=== PATIENT | male | born 1950 | race Caucasian/White ===

== ENCOUNTER 2024-12-23 22:22 | Inpatient (IN) | payer OTHER, SELFPAY ==
[2024-12-23] VITALS (25 sets, daily range): BP systolic 106–181; BP diastolic 72–161; BMI 35.0
[2024-12-23 16:02] LABS: Glucose - Point of Care 76 mg/dl (70-99)
--- NOTE | 2024-12-23 16:26 | CM ---
ED CM consult for dc planning
Pt found home alone, disheveled and confused
Call with neighbor/Elen [phone]
She resides across the street
Pt resides alone in [facility] with 2+1 MANUEL
Pt has a SPC and steadily been declining, pt with poor hygiene
Neighbor does grocery shopping and assists him with paying bills
They called paramedics as pt was weak at home, incontinent and could not get out chair
He does not have an active PCP, not seen one in 7 years
Noted she believes he never had a drain removed post-op but is unsure if drain remains
Pt is to his spouse/Christiana- they are estranged and she is not involved
She resides at [facility]
VM left on her number asking for call back [phone]
CM will continue to follow pt for support and planning
Discharge Disposition- TBD, possible LTC placement
[2024-12-23 16:33] LABS: Hematocrit 45.8 % (39.0-52.0); Hemoglobin 15.4 g/dL (13.0-18.0); Mean Corp Hgb Conc. 33.6 g/dL (33.0-37.0); Mean Corpuscular Volume 85.0 fL (80.0-94.0); Nucleated Red Blood Cells % 0 % (-); Platelet Count 218 10^3/uL (130-400); Red Cell Dist. Width 15.3 % (11.5-14.5)
--- NOTE | 2024-12-23 16:36 | ED.GENMED ---
History of Present Illness
General
Chief Complaint: Change in Mental Status
Source: patient and ambulance crew (Ambulance crew report reviewed)
Exam Limitations: clinical condition and altered mental status
Time Seen by Provider: 12/23/24 15:45
Nursing documentation reviewed up to this point in time: agreed with
History of Present Illness
History of Present Illness:
74-year-old male history of A-fib, tells me has not had meds for at least a year tells me he was on the ground through the weekend since Monday, cannot tell me why he was on the ground only that he could not get up, denies falling denies any pain
triage note states that neighbors found him, patient states that he called the ambulance, nonetheless he is disheveled covered in dried stool looks dehydrated has not eaten for a few days tachycardic
Past History
Past History
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
ED Past Surgical History: Urological (TURP) and Other (Splenectomy)
Social History
Tobacco: Non-smoker
Alcohol: None
Drug: None
Personal: (But lives alone)
Living: with family
Employment: Employed
Family History
Family History: Other (nonsig)
Phy Exam
Physical Exam
Physical Exam:
Physical Exam
General: Disheveled male
Neck: Dry lip
Heart: Tachycardic
Lungs: No wheeze
Abdomen: Obese
Neuro: Oriented to place unsure of the date knows he is in
Skin: no rash
Psychiatric: Disheveled cooperative
Extremities: Scale E stool cover lower extremities
Course
Orders/Labs/Results
Orders:
Orders
12/23/24 15:37
Electrocardiogram (*1) Urgent
Reason for Study: Tachycardia
EKG- Treatment ONCE
12/23/24 15:45
Case Management Consult ONCE
Case Management Consult: Discharge Planning
Requested By:: NURSING
Comment: see ER note.
12/23/24 16:21
Add On- LAB Urgent
Tests Added?: bnp
Add On- LAB Urgent
Tests Added?: cpk
Cardiac Monitoring- Treatment ONCE
12/23/24 16:22
CT Cervical Spine W/o Iv Contr Urgent
Comment:
Reason For Exam: found down
CT Head W/o Iv Contrast Urgent
Comment:
Reason For Exam: found down
12/23/24 16:25
Complete Blood Count/With Diff Urgent
Lactic Acid Urgent
Troponin I Urgent
Urinalysis Reflex To Culture Urgent
Date Specimen was Collected: 12/23/24
Time Specimen was Collected: 15:37
Urine Microscopic Reflex Cult Urgent
Urine Culture Urgent
[place] Source: U
Specimen Description:
Date Specimen was Collected: 12/23/24
Time Specimen was Collected: 15:37
12/23/24 16:38
Diltiazem HCl [Cardizem] 10 mg IV NOW STA
12/23/24 16:41
Straight Cath As Directed
Frequency: One time now
12/23/24 16:45
Diltiazem 125 mg/125 ml Nss [Cardizem] 125 mg in 125 ml IV PER PROTOCOL
Initial dose in mg/hr, then titrate:: 5
Titrate to keep:: Heart rate 80-100 bpm
Titrate by mg/hr:: 5 mg/hr
Frequency of titrations (minutes):: 15
Maximum dose in mg/hr:: 15
12/23/24 16:53
CR Chest Portable - 1 View Urgent
Comment:
Reason For Exam: found down
Reason Study Needs to be Portable: Patient Unstable
12/23/24 16:54
Pelvis, 1 or 2 Views CR [CR Pelvis - 1 Or 2 Views ] Urgent
Comment:
Reason For Exam: portable too sick to transport im told
12/23/24 17:19
NT-proBNP Urgent
12/23/24 18:19
Comprehensive Metabolic Panel Urgent
Creatine Phosphokinase Urgent
Abnormal Lab Results
12/23/24 12/23/24
16:25 18:19
WBC 13.5 H 10^3/uL
(4.8-10.8)
RDW 15.3 H %
(11.5-14.5)
MPV 10.7 H fL
(7.4-10.4)
Abs Immat Gran (auto) 0.1 H 10^3/uL
(0-0.05)
Absolute Neuts (auto) 10.7 H 10^3/uL
(1.4-6.5)
Absolute Lymphs (auto) 1.1 L 10^3/uL
(1.2-3.4)
Absolute Monos (auto) 1.4 H 10^3/uL
(0.1-0.6)
Neutrophils % 79.1 H %
(42.2-75.2)
Lymphocytes % 8.5 L %
(20.5-51.1)
Monocytes % 10.7 H %
(1.7-9.3)
BUN 44 H mg/dl
(9-20)
Lactic Acid 2.3 H mmol/L
(0.7-2.0)
Total Bilirubin 2.4 H mg/dl
(0.2-1.3)
AST 61 H U/L
(17-59)
ALT 51 H U/L
(0-50)
Alkaline Phosphatase 208 H U/L
(38-126)
Troponin I 0.058 H* ng/ml
Albumin 3.4 L g/dl
(3.5-5.0)
Urine Ketones 2+ A
(Negative)
Ur Occult Blood Reflex 2+ A
(Negative)
Leukocyte Esterase Rfl 1+ A
(Negative)
Urine RBC 11-15 A /HPF
(0-2)
Urine Bacteria (Reflex) Few A
(Negative)
Urine Albumin (Reflex) 3+ A
(Neg - Trace)
12/23/24 16:25
12/23/24 18:19
Vital Signs
Initial and Last Documented VS:
Initial Vital Signs
Temp Pulse Resp BP Pulse Ox
98.9 F 173 20 154/112 96
12/23/24 15:36 12/23/24 15:36 12/23/24 15:36 12/23/24 15:36 12/23/24 15:36
Last Documented Vital Signs
Temp Pulse Resp BP Pulse Ox
98.9 F 150 22 136/91 95
12/23/24 15:36 12/23/24 18:15 12/23/24 18:15 12/23/24 18:10 12/23/24 18:00
MDM/Problems Addressed
Differential Diagnosis Includes:
Dehydration rapid A-fib call trauma electrolyte abnormality rhabdo occult infection
MDM/Problems Addressed:
Tachycardia down A-fib noncompliance
Chronic conditions affecting care: Arrhythmia
Acute Exacerbation and/or Progression of Chronic Illness: Arrhythmia
*Radiology
Radiology exam reviewed: radiology read reviewed
*Pulse Oximetry
SaO2: 95
Oxygen Mode of Delivery: Room air
Patient hypoxic: no
*EKG
Interpreted by ED Provider?: Yes
Interpretation: abnormal
Comparison EKG: no comparison EKG present
Heart Rate: 174
Rate: tachycardiac
Rhythm: a-fib
Ischemia: non-specific ST changes
*Legal Arbitrator Interpretation
Rate: tachycardiac
Interpretation: abnormal
Heart Rate: 174
Rhythm: a-fib
*Critical Care Note
Total Time (30-74mins, 75-104mins- exclusive of procedures): 30
ED Attending Note
-
Portions of this chart may have been created with voice recognition software.� Occasional wrong word or��sound alike� substitutions may have occurred due to the inherent limitations of voice recognition software.
Discharge Plan
Departure
Prescriptions:
No Action
hydralazine 50 MG tablet
100 mg PO BID
tamsulosin 0.4 MG capsule
0.8 mg PO HS
trazodone 50 MG tablet
50 mg PO HS
pantoprazole 40 MG tablet,delayed release (DR/EC)
40 mg PO DAILY Qty: 30 0RF
olmesartan 20 MG tablet
20 mg PO DAILY
multivitamin with folic acid [Tab-A-Silver] 1 TABLET tablet
1 tab PO DAILY
apixaban [Eliquis] 5 MG tablet
10 mg PO BID 4 Days Qty: 16 0RF
apixaban [Eliquis] 5 MG tablet
5 mg PO BID Qty: 60 0RF
Rx Instructions:
start 5 mg BID after you complete the 10 mg BID for 4 days
acetaminophen 325 MG tablet
650 mg PO Q4HPRN PRN (Reason: mild to moderate pain) Qty: 0 0RF
atorvastatin 20 MG tablet
20 mg PO QPM Qty: 20 0RF
docusate sodium 100 MG capsule
100 mg PO BID Qty: 0 0RF
Referrals:
NONE,* [Family Provider, Internal Medicine]
Interventions
Interventions:
*Risk Screen - Suicide Last Done: 12/23/24 15:36
*General Assessment Last Done: 12/23/24 15:36
*Neglect/Abuse Screening Last Done: 12/23/24 15:36
*ED- Fall Risk Assessment Last Done: 12/23/24 15:36
*ED COVID-19 Vaccine History Last Done: 12/23/24 15:36
ED- Neurological Assessment Last Done: 12/23/24 15:36
ED Swallowing Screen Last Done: 12/23/24 17:36
Discharge Date and Time
Print Language: GUAMANIAN
[2024-12-23] MEDS: CARDIZEM 10 MG IV (16:48)
[2024-12-23] MEDS: CARDIZEM 125 IV (16:51)
[2024-12-23 17:16] LABS: Troponin I 0.058 ng/ml
[2024-12-23 17:30] LABS: Urine Character Clear (Clear)
[2024-12-23 18:03] LABS: Urine Squamous Cell 0-2 /LPF (Few)
[2024-12-23 19:06] LABS: ALT (SGPT) 51 U/L (0-50); AST (SGOT) 61 U/L (17-59); Albumin 3.4 g/dl (3.5-5.0); Alkaline Phosphatase 208 U/L (38-126); Blood Urea Nitrogen 44 mg/dl (9-20); Calcium 8.8 mg/dl (8.4-10.2); Carbon Dioxide 24 mmol/L (22-30); Chloride 102 mmol/L (98-107); Estimated Creatinine Clearance 78 ml/min; Glucose 80 mg/dl (70-99); Potassium 3.7 mmol/L (3.5-5.1); Sodium 136 mmol/L (135-145); Total Protein 6.5 g/dl (6.3-8.2); eGFR > 60.00
--- NOTE | 2024-12-23 21:42 | HPS.HSE ---
Family Physician
-
Family Physician: * NONE
Chief Complaint
-
atrial fibrillation with rapid ventricular response
History of Present Illness
This is a 74-year-old with past medical history significant for hypertension, CVA, hyperlipidemia, history of PE, presenting to the emergency department after being found down at home.
Patient stated that he has not been on any medications for about a year. He has laid on the ground since the weekend and he is unable to specify why. He states he could not get up. He had denied any falls. He denied any focal weaknesses.
Neighbors found him and taking he called the ambulance. He appears quite dehydrated and tachycardic on arrival.
Patient is fairly poor historian. He said he stopped taking his medications because he felt well and he did not like taking as many medications. He reported that he has not been feeling well since Monday. He had difficulty getting off of the bed.
When he got up to bed he was not able to stand normally and then he lowered himself to the floor. He denies falling. When asked why I could not get him walk he just says that he felt weak but could not provide any more symptoms. Denies having
any fevers or chills. He denies having any cough. He denies any urinary symptoms. He did note some back discomfort. Denies any numbness or tingling. Patient reports no real outside contact except for neighbors and occasional relative (her
brother).
He has not had any thing to drink or eat since Monday evening.
He is quite disheveled in appearance with poor grooming and multiple old skin lesions in his lower extremities.
In the emergency department blood pressure was 106/72 and he was tachycardic to the 130s. He was satting 95% on room air. Temperature was 98.9.
ECG shows atrial fibrillation at a rate of 176 with without any acute ischemic changes. His troponin was 0.06. BNP was 600. CK1 09. UA was unremarkable.
CT of the head shows no acute stroke, no acute intracranial bleed. There is no C-spine trauma. X-ray of the pelvis shows no fracture. Chest x-ray with possible left basilar atelectasis or pneumonia.
Medical History
Past Medical History
Past Medical History: Reports Other
Additional Past Medical History:
Pulmonary embolism
Hypertension
GERD
BPH
History of CVA
Past Surgical History: Reports Cholecystectomy
Social History
Tobacco: Non-smoker
Alcohol: None
Drug: None
Employment: Not Employed
Family History
Family History: Not pertinent
Allergies / Home Medications
Allergies reflects when Allergies were last updated in [facility].
Home Medications with original date entered in [facility]
Allergy/Medication List:
Allergies
Allergy/AdvReac Type Severity Reaction Status Date / Time
No Known Allergies Allergy Verified 05/27/21 12:56
Home Medications
acetaminophen 325 mg tablet 650 mg (2 x 325 mg) PO Q4HPRN PRN mild to moderate pain ##0 06/24/15
atorvastatin 20 mg tablet 20 mg PO QPM ##20 06/24/15
docusate sodium 100 mg capsule 100 mg PO BID ##0 06/24/15
hydralazine 50 mg tablet 100 mg PO BID Blood pressure 01/17/16
tamsulosin 0.4 mg capsule 0.8 mg PO HS Urinary issue 08/12/16
trazodone 50 mg tablet 50 mg PO HS Sleep 06/01/21
pantoprazole 40 mg tablet,delayed release 40 mg PO DAILY #30 tabs 06/04/21
multivitamin with folic acid 400 mcg tablet (Tab-A-Silver) 1 tab PO DAILY Supplement 06/08/21
olmesartan 20 mg tablet 20 mg PO DAILY Blood pressure 06/08/21
apixaban 5 mg tablet (Eliquis) 5 mg PO BID #60 tabs 06/14/21
apixaban 5 mg tablet (Eliquis) 10 mg (2 x 5 mg) PO BID 4 days #16 tabs 06/14/21
Review of Systems
-
History Source: Patient
Constitutional: Reports No Symptoms
EENT: Reports No Symptoms
Respiratory: Reports No Symptoms
Cardiac: Reports No Symptoms
Abdomen/GI: Reports No Symptoms
: Reports No Symptoms
Musculoskeletal: Reports No Symptoms
Skin: Reports No Symptoms
Neurological: Reports No Symptoms
Endocrine: Reports No Symptoms
Hematologic/Lymphatic: Reports No Symptoms
Psych: Reports No Symptoms
Physical Exam
Vital Signs
Vital Signs
Temp Pulse Resp BP Pulse Ox
98.9 F 125 22 106/72 95
12/23/24 15:36 12/23/24 20:40 12/23/24 21:00 12/23/24 20:40 12/23/24 21:00
Physical Exam
General: Well Developed, Appears Chronically Ill and Obese; No No Apparent Distress, Respiratory Distress or Appears in Distress
HEENT: NormoCephalic, Anicteric, Atraumatic, PERRLA and No Ptosis; No Oxygen
Respiratory: Clear
Cardiac: S1/S2, Irregular Rhythm and Tachycardia
Breast: Deferred by me
GI: Soft, Non Tender, Non Distended and Normal Bowel Sounds
Rectal: Deferred by Provider
Genito-urinary: Deferred by me
Musculoskeletal: No Clubbing, No Cyanosis, Edema, Left Lower Extremity (Trace) and Edema, Right Lower Extremity (Trace)
Skin: Warm and Rash
Neuro: AO x 3 and Nonfocal/grossly intact
Hematologic/Lymphatic: No Lymphadenopathy
Psych: Calm
Laboratory Results
-
12/23/24 16:25
12/23/24 18:19
Laboratory Results
Lactic Acid 2.3 mmol/L (0.7-2.0) H 12/23/24 16:25
Total Bilirubin 2.4 mg/dl (0.2-1.3) H 12/23/24 18:19
Total Bilirubin Cancelled 12/23/24 18:19
AST 61 U/L (17-59) H 12/23/24 18:19
AST Cancelled 12/23/24 18:19
ALT 51 U/L (0-50) H 12/23/24 18:19
ALT Cancelled 12/23/24 18:19
Alkaline Phosphatase 208 U/L (38-126) H 12/23/24 18:19
Alkaline Phosphatase Cancelled 12/23/24 18:19
Troponin I 0.058 ng/ml H* 12/23/24 16:25
Data Reviewed
-
Diagnostic Radiology: Image Personally Visualized and interpreted and Report Reviewed by me
CT Scan: Report Reviewed by me
Medical Tests (Nuc Med, Echo, EKG etc): Image Personally Visualized and interpreted
Lab Data: Labs Reviewed by me
Old Records: Reviewed
Impression/Plan
-
IMPRESSION:
74-year-old with history of hypertension, hyperlipidemia, prior PE on apixaban not currently on anticoagulation, hypertension, BPH, presenting to the emergency department after being found on the floor at home and found to be in rapid atrial
fibrillation. He has dehydration with elevated BUN, no obvious signs of infection. He has no focal deficits but has a slight slurring of his speech. CT of the head was negative. Imaging shows no trauma and specifically no hip fracture or
dislocation. Chest x-ray with possible infiltrate but patient is without cough or fevers chills or leukocytosis. UA was unremarkable.
PLAN:
New onset atrial fibrillation with rapid ventricular response
- Admit to IVU
- Continue diltiazem drip
- Patient was not on any beta-salome nor does he have a history of CHF
- CHADS2 equals 2, will need AC, but unclear fall risk, no trauma on imaging
- start heparin for rising trop 0.06 -> 0.2, trend trops.
- NPO after midnight for possible JUMANA/DCCV
- dehydrated but no known h/o CHF. Continue IV fluids for now
- echo, tsh in am
- cardiology consult
PE - h/o PE on record 2021. Does not appear to be provoked at that time and was placed on anticoagulation. Does not know for how long but he has stopped taking medications for 1 month
- No chest pain at this time, check D-dimer
- Check lower extremity DVT
- Reevaluate anticoagulation after for risk evaluation
ACS - Suspect rate related demand ischemia, no cp
- ada 324 x 1
- heparin gtt started
- trend trops
- cardiology consult
Hypertension
- Continue diltiazem
- Hold olmesartan
BPH -renal function is stable no signs of retention
- Restart tamsulosin
- Bladder scan protocol
PT OT
Case management as patient may require rehab placement
DVT prophylaxis�Lovenox subcu
CODE STATUS�full code
[2024-12-23 23:12] LABS: Troponin I 0.291 ng/ml
[2024-12-24] VITALS (14 sets, daily range): BP systolic 110–140; BP diastolic 61–99; BMI 35.0
[2024-12-24] MEDS: CARDIZEM 125 IV ×2 (00:19→08:50)
[2024-12-24] MEDS: HEPARIN 25000 UNITS/250 ML IV (00:31)
[2024-12-24] MEDS: NSS 1000 IV (00:31)
--- NOTE | 2024-12-24 00:45 | PTCARENOTE ---
patient arrived from ED,hand off with ED RN, Wounds documented, VSS. On Cardizem dinfusion at 15, Heparin started @1000 units/hr, Labs sent. Patient is alert andoriented, follws all commands, Right side weakness at baseline. Right hand contracted
and limited movement. +pulses, no edema, Multiple leg wounds venous ulser, cracked skin, sacral wound documented and dressing applied. See worklist for detailed assessment and documentation.
[2024-12-24] MEDS: LOW STRENGTH ASPIRIN 324 MG PO (00:48)
[2024-12-24 00:49] LABS: COVID-19 Antigen Negative (Negative)
[2024-12-24 00:51] LABS: APTT 29.7 Sec (23.4-35.0)
--- NOTE | 2024-12-24 03:00 | DOWNTIME ---
There was a [employer] Electronic Device [employer]airer Downtime on 12/24/2024 from 0100 to 12/24/2024 at 0220. Downtime documentation of patient's care, including medication administrations, has been reconciled in the electronic record per guidelines. Refer to the
patient's paper chart under the miscellaneous tab to see printed paper medication records and downtime forms.
[2024-12-24 05:05] LABS: Hematocrit 42.5 % (39.0-52.0); Hemoglobin 14.1 g/dL (13.0-18.0); Mean Corp Hgb Conc. 33.2 g/dL (33.0-37.0); Mean Corpuscular Volume 85.9 fL (80.0-94.0); Platelet Count 219 10^3/uL (130-400); Red Cell Dist. Width 15.3 % (11.5-14.5)
[2024-12-24 05:30] LABS: Blood Urea Nitrogen 40 mg/dl (9-20); Calcium 8.4 mg/dl (8.4-10.2); Carbon Dioxide 28 mmol/L (22-30); Chloride 103 mmol/L (98-107); Estimated Creatinine Clearance 69 ml/min; Glucose 93 mg/dl (70-99); HDL Cholesterol 21 mg/dl; LDL Cholesterol, Calculated 77 mg/dl; Magnesium 2.0 mg/dl (1.6-2.3); Potassium 3.5 mmol/L (3.5-5.1); Sodium 137 mmol/L (135-145); Very Low Density Lipoprotein 29 mg/dl (0-30); eGFR > 60.00
[2024-12-24 05:32] LABS: Procalcitonin 2.21 ng/ml (0.0-0.25)
[2024-12-24 05:41] LABS: Troponin I 0.471 ng/ml
[2024-12-24 08:08] LABS: APTT 31.8 Sec (23.4-35.0)
--- NOTE | 2024-12-24 08:59 | PTOTSP ---
Received order for PT and reviewed chart. Noted pt with rising troponin level. Will hold PT at this time and await downtrend.
Pt will need OT orders for ADL dysfunction and likely SNF placement.
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
[2024-12-24] MEDS: PROTONIX 40 MG PO (09:52)
[2024-12-24] MEDS: COLACE 100 MG PO ×2 (09:52→20:12)
[2024-12-24] MEDS: TOPROL XL 25 MG PO (11:12)
[2024-12-24] MEDS: CARDIZEM CD 180 MG PO (11:12)
--- NOTE | 2024-12-24 12:23 | W.PN.HOSP.TC ---
Today's Communication/Plan
-
see plan
Assessment / Plan
Assessment / Plan
Impression
74-year-old with history of hypertension, hyperlipidemia, prior PE on apixaban not currently on anticoagulation, hypertension, BPH, presenting to the emergency department after being found on the floor at home and found to be in rapid atrial
fibrillation. He has dehydration with elevated BUN, no obvious signs of infection. He has no focal deficits but has a slight slurring of his speech. CT of the head was negative. Imaging shows no trauma and specifically no hip fracture or
dislocation. Chest x-ray with possible infiltrate but patient is without cough or fevers chills or leukocytosis. UA was unremarkable.
Failure to thrive. Admitted with falls.
Atrial fibrillation with RVR new diagnosis.
Elevated cardiac markers troponin/BNP.
Medication noncompliance
Acute urinary retention
Suspected depression
Other conditions:
History of pulmonary embolism 2021.
History of CVA treated with tPA 2014.
History of gastrointestinal hemorrhage presumably lower source from hemorrhoids and polyps
Essential hypertension.
Obesity with BMI of 35
Dyslipidemia
Plan
Atrial fibrillation with rapid ventricular response, new diagnosis.
Echo 06/09/2021: EF 70 to 75%, normal regional wall motion mild concentric LVH
Asymptomatic and hemodynamically stable upon presentation.
IV Cardizem been transition to metoprolol and diltiazem CD.
Initiated on IV heparin also covering possible ACS given abnormal troponin and pending echocardiogram
Further decision on long-term anticoagulation to be made according to patient wishes and compliance as well as ongoing workup
Abnormal troponin
Mildly elevated pro CHF BNP at 600
Repeated echocardiogram pending.
Consideration of ischemic workup if patient agree.
History pulm embolism 2021
Not compliant with anticoagulation
Lower extremity Doppler
Chest x-ray with questionable left lower lobe infiltrate/atelectasis.
Patient denies any acute respiratory symptoms
Acute urinary retention.
PVR over 500 cc.
Check PSA
Urinalysis with no evidence of infection
Meehan catheter placed on 12/24
Consider Flomax
PT evaluation increase activity
Bilateral venous stasis dermatitis cellulitis.
Afebrile with improving WBC.
No clear indication for antibiotics per
Continue wound care
History of CVA.
No focal findings on exam
CT head
1. No acute intracranial abnormality noted.
2. No acute fracture or subluxation of the cervical spine. Multilevel degenerative changes of the cervical spine.
3. Right frontal convexity partially calcified extra-axial mass, likely meningioma, new from 2016. Recommend outpatient workup with dedicated MRI brain without and with contrast.
Failure to thrive.
Patient at this point declining any invasive test or interventions.
He has been noncompliant with medications including anticoagulation prior to this presentation.
In addition patient declined any aggressive intervention including CPR or invasive ventilation.
Will ask psychiatry to evaluate for capacity and possible depression
DNR
DVT prophylaxis currently on IV heparin.
Anticipated Discharge: 24 - 48 hours
Subjective/Interval History
-
Date of Service: December 24, 2024
Objective Data
-
Labs:
Laboratory Results
12/24/24 12/24/24 12/24/24
00:24 04:18 07:47
WBC 11.4 H
Hgb 14.1
Hct 42.5
Plt Count 219
APTT 29.7 31.8
Sodium 137
Potassium 3.5
Chloride 103
Carbon Dioxide 28
BUN 40 H
Creatinine 1.2
Glucose 93
Calcium 8.4
12/24/24
15:00
WBC
Hgb
Hct
Plt Count
APTT Pending
Sodium
Potassium
Chloride
Carbon Dioxide
BUN
Creatinine
Glucose
Calcium
Vital Signs:
Vital Signs
Temp Pulse Resp BP Pulse Ox
97.6 F 88 19 110/77 96
12/24/24 10:54 12/24/24 12:00 12/24/24 10:54 12/24/24 11:12 12/24/24 10:54
I&O
12/23/24 12/24/24 12/25/24
06:59 06:59 06:59
Intake Total 200 / 200 500 / 500
Balance 200 / 200 500 / 500
Physical Exam
-
General: Well Developed and No Apparent Distress
HEENT: Normocephalic, Atraumatic and Moist Mucous Membranes
Respiratory: Clear to Auscultation
Cardiac: Regular Rhythm and S1/S2; Negative Murmur, Rub or Gallop
GI: Soft, Nontender, Nondistended and Normal Bowel Sounds; Negative Organomegaly
Rectal: Deferred by Provider
Musculoskeletal: No Clubbing, No Cyanosis and Other (Bilateral lower extremity venous stasis dermatitis and superficial wounds.)
Skin: Negative Rash
Neuro: Nonfocal/Grossly Intact
[2024-12-24 12:58] LABS: Troponin I 0.359 ng/ml
[2024-12-24 13:34] LABS: PSA, Total - Screen 2.56 ng/ml (0.0-4.0)
--- NOTE | 2024-12-24 13:34 | WOUNDNOTE ---
R FOOT AND TOE NAILS
--- NOTE | 2024-12-24 13:35 | WOUNDNOTE ---
R LATERAL POSTERIOR LOWER LEG
--- NOTE | 2024-12-24 13:35 | WOUNDNOTE ---
R PROXIMAL LOWER LEG
--- NOTE | 2024-12-24 13:36 | WOUNDNOTE ---
L LATERAL POSTERIOR LOWER LEG
--- NOTE | 2024-12-24 13:36 | WOUNDNOTE ---
L MEDIAL POSTERIOR LOWER LEG
--- NOTE | 2024-12-24 13:37 | WOUNDNOTE ---
SACRUM AND BUTTOCKS
--- NOTE | 2024-12-24 13:38 | WOUNDNOTE ---
R ANTERIOR CAM AFTER CLEANING
--- NOTE | 2024-12-24 13:38 | WOUNDNOTE ---
L FOOT AFTER CLEANING
--- NOTE | 2024-12-24 13:38 | WOUNDNOTE ---
L GREAT TOE NAIL BED
--- NOTE | 2024-12-24 13:40 | WOUNDNOTE ---
[facility] RN note: Patient admitted with atrial fibrillation with RVR.
See H&P for complete history. Lives by self, neighbor assists with shopping etc.
PMH: HTN, obesity, CVA with R sided weakness in arm, HTN, increased weakness.
Wound Location and type/assessment: Patient admitted with: Chronic appearing lymphedema of legs and venous dermatitis. Patient confirmed he is unable to wash legs and feet himself. Nails extremely long, has not been to a picking supervisor. L dorsal foot
with few nails that have fallen off, great toe weeping and 4th toe dry, 5th scabbed. R joy with partial thickness venous ulcer, all others scabbed. + audible pp with Doppler. + hemosiderin staining of legs. Scattered bumpy skin with dried up
weeping suspected. Heels are intact. Patient turned self to R side, R arm weak. Buttock's where folds meet, there are bumpy growths that easily bleed, no open wounds. Suspect patient sits in chair most of day. Family friend and neighbor at bedside
confirms he helps patient when needed.
Appetite: Good.
Pressure redistribution devices in place: On Accumax, asked nurse Chasity to consider adding air overlay or air mattress if patient becomes difficult to turn. Pillow under calves.
Plan: Washed legs and feet with soap and water, moisturized. Will order mineral oil. Local wound care to R joy and L great toe nail bed done. Dandy wraps knee high applied. Foams to heels and sacrum applied. Will confirm orders with hospitalist and
updated nurse. Updated care plan and will follow as needed.
Note to case management of equipment requested for discharge: SNF
Recommend follow up with Podiatry
--- NOTE | 2024-12-24 13:59 | CM ---
Reviewed chart. Met with Mr. Blackwell and his neighbor Rishi. Mr. Blackwell states prior to admission he resides alone in a one story home with one step to enter. He states prior to admission he ambulates with a single point cane or walker. He states he
has a walker or single point cane at home. He does not know if he has a prescription plan since he does not take any medications. We reviewed going to SNF/Rehab. We reviewed the SNF's in the area. He states he would consider [facility]. He has
been there in the past. Will send referrals once therapy evaluations are completed. Medical work-up in progress. The discharge plan is to go to SNF/Rehab. if approved by insurance and bed available.
--- NOTE | 2024-12-24 15:32 | CS.PSYCHR ---
Consult Summary - Psychiatry
-
Pt is a 74-year-old male with hx of hypertension, CVA, hyperlipidemia, history of PE, who presented to the [facility] ED after being found down at home by neighbors. Pt states the chair was too low because pillows had been removed to clean it and he was
unable to get up. Pt reported not being on his prescribed medications for about a year, states some are too expensive, states he felt well so he didn't take them. Pt states he last was his PCP in 2021.
Psychiatry asked to assess for depression and pt's capacity for decision-making. Pt seen sitting upright, leaning over to the left, eating lunch. Right hand/arm has paralysis from a past CVA, pt states he is unable to use it. Pt fairly
cooperative, giving blunt answers, denies any depression. He watches TV for enjoyment. He is aware his medication is important for his health, 'to keep my heart from going crazy', states awareness of risks to his health/life if not taking. Pt
states he asked for palliative care to 'save money.' Pt states he wants to go home. He states he is 'thinking about' the additional tests recommended. Pt appears alert, mostly oriented, in no acute distress, eating his lunch.
Psych Hx: denied
SH: lives alone in ranch-style home; neighbor helps with food shopping and bill paying. Pt is estranged from his . He denies any alcohol or other substance use. 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
Pt denies having any family or support other than his neighbor. Pt states he has a will, but not able to state any medical provisions
MSE: unkempt, disheveled, alert, fairly oriented, cooperative, making eye contact, answering questions. Pt has long dirty fingernails. Pt states his wish to go home, appears to understand health risks of not accepting treatment, does not give a
full rationale. Pt denies depression, denies SI. He shows no signs of psychosis. Insight appears limited to fair.
Imp/Rec: Capacity appears partially intact- pt able to clearly express his wish to go home, seems to understand the basics of his situation, not able to give a complete rationale. He has no reported family to assist with decision-making
Pt denies any depression, not interested in any psychiatric support. Psychiatry will sign off. Please reconsult for any new concerns.
[2024-12-24 16:07] LABS: APTT 32.2 Sec (23.4-35.0)
[2024-12-24] MEDS: LIPITOR 20 MG PO (17:54)
--- NOTE | 2024-12-24 19:32 | PTCARENOTE ---
Discussed plan of care w/ pt. Encouraged turning and moving in bed. Pt verbalized understanding. Will monitor.
[2024-12-24] MEDS: ELIQUIS 5 MG PO (20:12)
[2024-12-24] MEDS: DESENEX/MITRAZOL/ZEASORB 1 APPLIC TOPICAL (20:12)
--- NOTE | 2024-12-24 22:57 | PTCARENOTE ---
assumed care of patient at the change of shift. AAOx3. pleasant. static overlay mattress applied. Afib on tele- appears controlled 70s-80s. bp stable. denies any pain at this time. Heparin stopped per order at approx 1999. PO Eliquis given and
reviewed with patient. denies any cp/palps/sob. turn and repositioned patient. comfort measures provided. Tran in place-orange urine. tran care provided. call pearson within reach.
[2024-12-24] MEDS: FLOMAX 0.8 MG PO (23:45)
[2024-12-25] VITALS (9 sets, daily range): BP systolic 125–161; BP diastolic 76–112; PULSE 85; O2SAT 96
[2024-12-25 05:07] LABS: Hematocrit 42.1 % (39.0-52.0); Hemoglobin 13.9 g/dL (13.0-18.0); Mean Corp Hgb Conc. 33.0 g/dL (33.0-37.0); Mean Corpuscular Volume 87.2 fL (80.0-94.0); Nucleated Red Blood Cells % 0 % (-); Platelet Count 219 10^3/uL (130-400); Red Cell Dist. Width 15.5 % (11.5-14.5)
[2024-12-25 05:40] LABS: Blood Urea Nitrogen 30 mg/dl (9-20); Calcium 8.3 mg/dl (8.4-10.2); Carbon Dioxide 30 mmol/L (22-30); Chloride 104 mmol/L (98-107); Estimated Creatinine Clearance 83 ml/min; Glucose 103 mg/dl (70-99); Potassium 3.6 mmol/L (3.5-5.1); Sodium 136 mmol/L (135-145); eGFR > 60.00
--- NOTE | 2024-12-25 05:57 | PTCARENOTE ---
wound care completed. bed/bath completed. controlled Afib 70s-80s. no complaints at this time.
[2024-12-25 08:40] LABS: Glycohemoglobin (HgbA1c) 5.3 % (4.0-5.6)
[2024-12-25] MEDS: ELIQUIS 5 MG PO ×2 (08:57→20:23)
[2024-12-25] MEDS: TOPROL XL 25 MG PO (08:57)
[2024-12-25] MEDS: PROTONIX 40 MG PO (08:57)
[2024-12-25] MEDS: CARDIZEM CD 180 MG PO (08:57)
[2024-12-25] MEDS: COLACE 100 MG PO ×2 (08:57→20:23)
[2024-12-25] MEDS: HYDROPHOR 1 APPLIC TOPICAL (08:58)
[2024-12-25] MEDS: DESENEX/MITRAZOL/ZEASORB 1 APPLIC TOPICAL ×2 (08:59→20:23)
--- NOTE | 2024-12-25 10:40 | W.PN.CARDCBS ---
Addendum entered and electronically signed by Raúl Cohen MD 12/25/24 12:55:
I saw and examined the patient.
The Registered Nurse First Assistant's note was reviewed and I agree with the note.
Comment: Briefly, 74-year-old man past medical history of CVA and PE who was BIBEMS after being found down at home. On initial presentation ECG showed atrial fibrillation with rapid ventricular response for which cardiology is consulted.
#A-fib
It is patient's preference to minimize medical interventions and therefore will plan for rate control strategy
Heart rate has been well-controlled on oral metoprolol and diltiazem - continue for heart rate goal less than 110 bpm
Eliquis for risk reduction of cardioembolic stroke
#Troponin elevation
Patient with rising troponin peaking at 0.471 but not reporting any chest discomfort and no overt ischemic changes on ECG
Echo w/ NL LV function and no SWMA
Suspect this is due to rapid atrial fibrillation -nonischemic myocardial injury troponin elevation
Given his preference to minimize interventions no plan for ischemic evaluation at this time, but we can revisit this as an outpatient
Stable cardiac status, we will sign off, please recall as needed
Original Note:
Today's Communication / Plan
-
HR controlled with BB and CCB
Cont Eliquis and he may refuse to take as an outpatient
Will schedule cardiology office follow up, but he may not attend
Impression / Plan
-
PCP: None, used to see [facility], last seen 2021
Card: None
Impression:
Admitted with falls, new Afib with RVR and elevated Troponin 12/23/24
Fall and found on the floor at home with unknown down time
Newly diagnosed Afib with RVR of unclear duration
Elevated Troponin
h/o PE in 2021
Not chronically on OAC due to patient choice
h/o CVA treated with tPA in 2014
HTN
Echo 06/09/2021: EF 70 to 75%, normal regional wall motion mild concentric LVH
Echo 12/24/24: EF 70 to 75%, normal regional wall motion, mild concentric LVH, normal RV size and function, no significant valvular pathology
Plan:
-Remains in newly diagnosed atrial fibrillation, but HR has improved following addition of Cardizem CD 180 mg daily and Toprol-XL 25 mg daily on 12/24/2024. Patient remains asymptomatic with A-fib
-Patient is not a candidate for rhythm control due to noncompliance
-Patient stopped taking Eliquis in 2021 due to cost. We talked about trying to use affordable medication where possible. Patient is willing to restart Eliquis for now, but says he will not take medications he can't afford once at home.
-Started Eliquis 5 mg BID (age 74, Cre 1.2)
-Stop Heparin gtt tonight after 1st dose of Eliquis, all orders placed by me
-EF preserved by echo and no evidence of acute HF
-Troponin peaked at 0.471. Patient denies any chest pain, ECG without acute ischemic change. No WMA. Troponin elevation could be related to A-fib with RVR.
-Patient was not taking any medications prior to admission. Patient presented disheveled and paramedics report a home in disarray and in need of maintenance. Patient says that he is willing to go to rehab prior to returning home. Patient vocalizes
an interest in palliative or even hospice level of care as in general he would not want any aggressive care and overall would like to avoid hospitalization, regular outpatient care and medical therapy.
-Will schedule an outpatient cardiology visit and patient may choose not to attend
HPI: Patient came to [facility] ER yesterday after being found on the floor in his home and was admitted with new Afib with RVR and elevated Troponin, cardiology is consulted. Patient lives alone, but has a friend/POA named Ervin stays with him sometimes
on the weekends. Ervin is POA and apparently has some access to patient's financial resources, but patient does not know exactly. Patient says he relies on friends and neighbors to help him pay bills and get groceries. Patient is disheveled, his
fingernails and toenails are up to 1 inch in length and patient with dried feces on himself on admission. Paramedics reported patient patient's home was in disarray and in need of maintenance. Patient says he was struggling to remove a piece of hard
stool from his rectum and called Ervin for help, but Ervin refused to come and help and so patient tried to remove it himself and he says he fell and laid on the floor for hours yesterday morning until neighbors found him. Patient was in Afib with
RVR in the ER, but denies palpitations. Patient used to be on Eliquis for PE in 2021, but stopped taking meds due to cost. Initial Troponin was 0.058 and up to 0.471 this morning, but patient denies chest pain. Patient is sedentary at home. No
previous stress test.
Progress Note - Visual Artist
Subjective
Date of Service: December 25, 2024
He says he feels better
Objective
Labs:
12/25/24 04:52
12/25/24 04:52
Labs
Hgb 13.9 g/dL (13.0-18.0) 12/25/24 04:52
Hct 42.1 % (39.0-52.0) 12/25/24 04:52
Plt Count 219 10^3/uL (130-400) 12/25/24 04:52
APTT Cancelled 12/24/24 22:00
Sodium 136 mmol/L (135-145) 12/25/24 04:52
Potassium 3.6 mmol/L (3.5-5.1) 12/25/24 04:52
BUN 30 mg/dl (9-20) H 12/25/24 04:52
Creatinine 1.0 mg/dL (0.7-1.3) 12/25/24 04:52
Glucose 103 mg/dl (70-99) H 12/25/24 04:52
Troponins
12/23/24 12/23/24 12/24/24
16:25 22:34 04:18
Troponin I 0.058 H* 0.291 H* D 0.471 H* D
12/24/24
12:11
Troponin I 0.359 H*
Vital Signs and I&O:
Vital Signs
Temp Pulse Resp BP Pulse Ox
97.6 F 84 20 131/76 96
12/25/24 07:50 12/25/24 09:00 12/25/24 07:50 12/25/24 08:57 12/25/24 07:50
Vital Signs
Temp Pulse Resp BP Pulse Ox
97.6 F 84 20 131/76 96
12/25/24 07:50 12/25/24 09:00 12/25/24 07:50 12/25/24 08:57 12/25/24 07:50
Intake & Output
12/23/24 12/24/24 12/25/24 12/26/24
06:59 06:59 06:59 06:59
Intake Total 200 / 200 1819 / 1819
Output Total 1550 / 1550
Balance 200 / 200 269 / 269
Physical Exam
Physical Exam
GEN: NAD. AAOx3.
LUNGS: RA. Not wheeze
CV: Afib on tele.
EXT: +1 B/L LE edema. B/L LE wounds and excoriations. Inch long toenails with visible brown to black dirt under all nails
NEURO: Gross non-focal
SKIN: No rash.
--- NOTE | 2024-12-25 11:23 | PTCARENOTE ---
Encouraged pt to change his position frequently while in bed.
--- NOTE | 2024-12-25 12:05 | W.PN.HOSP.TC ---
Today's Communication/Plan
-
Rate controlled on oral regimen
Reinstated on thromboembolic prophylaxis with Eliquis
Lower extremity Doppler pending.
No clinical indication for ischemic workup over this hospitalization.
PT/OT assessment
Placement to long-term facility
Assessment / Plan
Assessment / Plan
Impression
74-year-old with history of hypertension, hyperlipidemia, prior PE on apixaban not currently on anticoagulation, hypertension, BPH, presenting to the emergency department after being found on the floor at home and found to be in rapid atrial
fibrillation. He has dehydration with elevated BUN, no obvious signs of infection. He has no focal deficits but has a slight slurring of his speech. CT of the head was negative. Imaging shows no trauma and specifically no hip fracture or
dislocation. Chest x-ray with possible infiltrate but patient is without cough or fevers chills or leukocytosis. UA was unremarkable.
Failure to thrive. Admitted with falls.
Atrial fibrillation with RVR new diagnosis.
Elevated cardiac markers troponin/BNP.
Medication noncompliance
Acute urinary retention
Suspected depression
Other conditions:
History of pulmonary embolism 2021.
History of CVA treated with tPA 2014.
History of gastrointestinal hemorrhage presumably lower source from hemorrhoids and polyps
Essential hypertension.
Obesity with BMI of 35
Dyslipidemia
Plan
Atrial fibrillation with rapid ventricular response, new diagnosis.
Echo 06/09/2021: EF 70 to 75%, normal regional wall motion mild concentric LVH
Asymptomatic and hemodynamically stable upon presentation.
Rate controlled
Transitioned off IV Cardizem to oral Cardizem and metoprolol
Reinstated on anticoagulation with Eliquis
Abnormal troponin
Mildly elevated pro CHF BNP at 600
Echocardiogram with preserved biventricular function with no regional wall motion abnormalities.
Currently no indication for ischemic workup.
Will need outpatient follow-up
History pulm embolism 2021
Not compliant with anticoagulation
Lower extremity Doppler pending
Chest x-ray with questionable left lower lobe infiltrate/atelectasis.
Patient denies any acute respiratory symptoms
Acute urinary retention.
PVR over 500 cc.
Check PSA
Urinalysis with no evidence of infection
Meehan catheter placed on 12/24
Consider Flomax
PT evaluation increase activity
Bilateral venous stasis dermatitis cellulitis.
Afebrile with improving WBC.
No clear indication for antibiotics per
Continue wound care
History of CVA.
No focal findings on exam
CT head
1. No acute intracranial abnormality noted.
2. No acute fracture or subluxation of the cervical spine. Multilevel degenerative changes of the cervical spine.
3. Right frontal convexity partially calcified extra-axial mass, likely meningioma, new from 2016. Recommend outpatient workup with dedicated MRI brain without and with contrast.
Failure to thrive.
Patient at this point declining any invasive test or interventions.
He has been noncompliant with medications including anticoagulation prior to this presentation.
In addition patient declined any aggressive intervention including CPR or invasive ventilation.
Will ask psychiatry to evaluate for capacity and possible depression
DNR
DVT prophylaxis currently on IV heparin.
Anticipated Discharge: Within 24 hours
Subjective/Interval History
-
Date of Service: December 25, 2024
Objective Data
-
Labs:
Laboratory Results
12/25/24
04:52
WBC 10.3
Hgb 13.9
Hct 42.1
Plt Count 219
Sodium 136
Potassium 3.6
Chloride 104
Carbon Dioxide 30
BUN 30 H
Creatinine 1.0
Glucose 103 H
Calcium 8.3 L
Vital Signs:
Vital Signs
Temp Pulse Resp BP Pulse Ox
98.5 F 84 20 131/76 96
12/25/24 11:46 12/25/24 09:00 12/25/24 11:46 12/25/24 08:57 12/25/24 11:46
I&O
12/24/24 12/25/24 12/26/24
06:59 06:59 06:59
Intake Total 200 / 200 1819 / 1819
Output Total 1550 / 1550
Balance 200 / 200 269 / 269
Physical Exam
-
General: Well Developed and No Apparent Distress
HEENT: Normocephalic, Atraumatic and Moist Mucous Membranes
Respiratory: Clear to Auscultation
Cardiac: Regular Rhythm and S1/S2; Negative Murmur, Rub or Gallop
GI: Soft, Nontender, Nondistended and Normal Bowel Sounds; Negative Organomegaly
Rectal: Deferred by Provider
Musculoskeletal: No Clubbing, No Cyanosis and Other (Bilateral lower extremity venous stasis dermatitis and superficial wounds.)
Skin: Negative Rash
Neuro: Nonfocal/Grossly Intact
--- NOTE | 2024-12-25 14:53 | CM ---
Reviewed chart. Met with Mr. Blackwell to review discharge plans. We reviewed the medical team recommendation of SNF/Rehab. We reviewed the SNF optuion list. He was agreeable to having referrals made to [facility] and [facility]. Will
make the referrals to SNF's after theapy has seen him to check on available bed. Will need pre-cert with his insurance for SNF/Rehab. Medical work-up in progress. The discharge plan is to go to SNF rehab when bed available and approved by
insurance when medically stable.
[2024-12-25] MEDS: LIPITOR 20 MG PO (18:08)
[2024-12-25] MEDS: FLOMAX 0.8 MG PO (20:25)
--- NOTE | 2024-12-25 23:06 | PTCARENOTE ---
Pt. oriented and pleasant, VSS, A-fib rate 90's-120's on the monitor. OOB for meals today per report then in bed tonight, q 2 turns maintained. Meehan catheter intact draining armando/orange urine. Pt. refusing to have B/L leg wraps removed at this
time, states he's more comfortable with them on. Resting quietly.
[2024-12-26] VITALS (23 sets, daily range): BP systolic 85–189; BP diastolic 65–157; BMI 36.4
[2024-12-26] MEDS: CARDIZEM 10 MG IV (01:59)
[2024-12-26] MEDS: LASIX 40 MG IV (02:00)
--- NOTE | 2024-12-26 02:15 | PTCARENOTE ---
Pt.'s HR shot up to 140's-170's (A-fib) at 0133. When checked on pt. found to be tachypneic and wheezing audibly, stated he was short of breath, denied any other pain or discomfort. . Pulse ox on RA 95% - 2L O2 placed for comfort; BP 173/96, temp
98.4. Hospitalist JUAN M Espinoza notified, orders for Cardizem 10 mg IV x 1, Lasix 40 mg IV, pro-BNP & portable CXRY obtained. Meds given, testing completed. Pt. visibly less distressed post med administration, stated he felt much relief, HR down to
low 100's-110's. Urine in Meehan tubing light yellow (had been dark armando previously) and draininjg well. JUAN M Buchanan in to assess at bedside, no new orders.
[2024-12-26 02:43] LABS: Blood Urea Nitrogen 23 mg/dl (9-20); Calcium 8.5 mg/dl (8.4-10.2); Carbon Dioxide 29 mmol/L (22-30); Chloride 103 mmol/L (98-107); Estimated Creatinine Clearance 83 ml/min; Glucose 152 mg/dl (70-99); Potassium 4.1 mmol/L (3.5-5.1); Sodium 136 mmol/L (135-145); eGFR > 60.00
[2024-12-26] MEDS: LOPRESSOR 5 MG IV (03:28)
[2024-12-26] MEDS: OFIRMEV 100 IV (03:34)
[2024-12-26 04:05] LABS: Hematocrit 43.6 % (39.0-52.0); Hemoglobin 14.6 g/dL (13.0-18.0); Mean Corp Hgb Conc. 33.5 g/dL (33.0-37.0); Mean Corpuscular Volume 86.3 fL (80.0-94.0); Platelet Count 260 10^3/uL (130-400); Red Cell Dist. Width 15.9 % (11.5-14.5)
[2024-12-26 04:09] LABS: ALT (SGPT) 170 U/L (0-50); AST (SGOT) 344 U/L (17-59); Albumin 3.0 g/dl (3.5-5.0); Alkaline Phosphatase 421 U/L (38-126); Total Protein 5.9 g/dl (6.3-8.2)
[2024-12-26 04:29] LABS: Urine Character Clear (Clear)
[2024-12-26 04:45] LABS: Urine Red Blood Cell 16-20 /HPF (0-2); Urine Squamous Cell 0-2 /LPF (Few)
--- NOTE | 2024-12-26 04:55 | PTCARENOTE ---
At 0306 Pt's HR again increased - up to the 190's (A-fib). When checked on pt. appeared to be having rigors with uncontrollable shaking, warm to touch & tachypnea. BP 145/107; rectal temperature of 101.7, pulse ox on 2L 95%. Hospitalist JUAN M
Chanel notified and came to bedside, orders for labs entered (CBC, lactic acid, blood & urine cultures) and sent, Lopressor 5 mg IV x 1, and Ofirmev 1g given. Pt. visibly much more comfortable post doctor of veterinary medicine, HR low 100's-120's. BP 119/72, oral
temp 98.9. Pt. to be started on IV antibiotics per orders. Currently resting quietly, HR 113.
[2024-12-26] MEDS: STERILE WATER FOR INJECTION 10 ML IV ×3 (05:22→17:53)
[2024-12-26] MEDS: MAXIPIME 1000 MG IV ×3 (05:22→17:52)
--- NOTE | 2024-12-26 05:28 | W.PN.UPDATE ---
Update Note
Progress Note Update
~ 0145 pt with increased RR and SOB- HR increased from 80s-120s a fib to 120s-170s. X1 dose of 10mg Cardizem given as well as 40mg IV Lasix and CXR-Dr. Borja- looked at image and interpreted no acute disease- awaiting radiologist interpretation.
~ around 0315- RN reached out stating pts HR was increasing again into the 170s afib and was SOB with Rigors- Temp 101.7 rectal. Orders placed for Lactic, CBC, UA, add on LFTs, Offirmiv, and Lopressor 5mg IV. Discussed results Lactic acid- 3.2,
Total bili-5.5, direct bili- 4.3 AST- 344 ALT-170 Alk phos- [address] Borja�and he recommended adding, covid swab, CT ABD/PEL., Vanco x1, Cefepime and Flagyl. Pt diuresising well s/p Lasix.�
[2024-12-26] MEDS: VANCOCIN 540 MG IV (05:29)
[2024-12-26 05:55] LABS: COVID-19 Antigen Negative (Negative)
[2024-12-26] MEDS: PROTONIX 40 MG PO (08:40)
[2024-12-26] MEDS: FLAGYL 500 MG 100 IV ×2 (08:40→17:53)
[2024-12-26] MEDS: CARDIZEM CD 180 MG PO (08:40)
[2024-12-26] MEDS: COLACE 100 MG PO ×2 (08:41→21:03)
[2024-12-26] MEDS: HYDROPHOR 1 APPLIC TOPICAL (08:41)
[2024-12-26] MEDS: DESENEX/MITRAZOL/ZEASORB 1 APPLIC TOPICAL ×2 (08:41→21:04)
[2024-12-26] MEDS: ELIQUIS 5 MG PO (08:41)
--- NOTE | 2024-12-26 08:52 | PTCARENOTE ---
Assumed care at 0700. Patient AO x3, withdrawn, garbled speech, RUE flaccid from a prior CVA. A-fib HR 110, BP 101/68, POX 94% on 2 liters NC. Lungs CTA, denies shortness of breath appears comfortable. Lower extremities + 1 edema, Doppler pedal
pulses, wound care completed, skin brown flaky skin with skin tears, toe nails unkempt, right great toenail absent, pink wound bed, REX. Sacral foam in place. Meehan cloudy orange urine. Abdomen large non-tender, can't recall last BM. IV antibiotics
infusing, NPO for CT of Abdomen with PO contrast. Call pearson placed in reach
[2024-12-26] MEDS: OMNIPAQUE 50 ML PO (09:06)
--- NOTE | 2024-12-26 10:08 | PTCARENOTE ---
oral contrast finished
[2024-12-26] MEDS: TOPROL XL PO (11:16)
--- NOTE | 2024-12-26 12:08 | PTCARENOTE ---
Page sent to IV for another IV access. Lactic acid collected, best attempt. Patient AO x 2-3, forgetful to time, oriented to situation. BP 103/79, POX 95% on 2 liters NC, A-fib HR 103, NPO to CT of abdomen, urine remains orange and cloudy
--- NOTE | 2024-12-26 13:28 | CM ---
Reviewed chart. Telephone call to [facility] and [facility] to make the referral. Sent referral to [facility] and [facility]. [facility] admissions is asking for an application because of the possibility of
needing rental car deliverer. [facility] will send the application. Await answer from [facility]. Medical work-up in progress. The discharge plan is to go to SNF/Rehab. when bed available and approved by insurance when medically stable.
--- NOTE | 2024-12-26 14:20 | W.PN.HOSP.TC ---
Today's Communication/Plan
-
SIRS. On 12/26 developed fever, transient hypotension, lactic acidosis, noted with mild elevation of white count at 12.1 and abnormal LFTs mixed pattern
Patient offers no specific complaints suggesting of a source of possible infection.
Chest x-ray with bilateral interstitial edema, although with stable respiratory status. Status post single dose of Lasix provided on 12/26.
Repeat UA and reflex to culture.
Maintain Meehan
CT of the abdomen pelvis with IV and oral contrast
Broad-spectrum antibiotics pending cultures: Status post vancomycin, continue cefepime and metronidazole
Trend lactic acid
While hemodynamically stable hold further IV fluids
Assessment / Plan
Assessment / Plan
Impression
74-year-old with history of hypertension, hyperlipidemia, prior PE on apixaban not currently on anticoagulation, hypertension, BPH, presenting to the emergency department after being found on the floor at home and found to be in rapid atrial
fibrillation. He has dehydration with elevated BUN, no obvious signs of infection. He has no focal deficits but has a slight slurring of his speech. CT of the head was negative. Imaging shows no trauma and specifically no hip fracture or
dislocation. Chest x-ray with possible infiltrate but patient is without cough or fevers chills or leukocytosis. UA was unremarkable.
Failure to thrive. Admitted with falls.
Atrial fibrillation with RVR new diagnosis.
Elevated cardiac markers troponin/BNP.
Medication noncompliance
Acute urinary retention
SIRS with fever, hypotension, lactic acidosis on 12/26
Abnormal LFTs mixed pattern with hyperbilirubinemia and elevated transaminases
Suspected depression
Other conditions:
History of pulmonary embolism 2021.
History of CVA treated with tPA 2014.
History of gastrointestinal hemorrhage presumably lower source from hemorrhoids and polyps
Essential hypertension.
Obesity with BMI of 35
Dyslipidemia
Plan
Atrial fibrillation with rapid ventricular response, new diagnosis.
Echo 06/09/2021: EF 70 to 75%, normal regional wall motion mild concentric LVH
Asymptomatic and hemodynamically stable upon presentation.
Rate controlled
Transitioned off IV Cardizem to oral Cardizem and metoprolol
Reinstated on anticoagulation with Eliquis
Abnormal troponin
Mildly elevated pro CHF BNP at 600
Echocardiogram with preserved biventricular function with no regional wall motion abnormalities.
Currently no indication for ischemic workup.
Will need outpatient follow-up
SIRS. On 12/26 developed fever, transient hypotension, lactic acidosis, noted with mild elevation of white count at 12.1 and abnormal LFTs mixed pattern
Patient offers no specific complaints suggesting of a source of possible infection.
Chest x-ray with bilateral interstitial edema, although with stable respiratory status. Status post single dose of Lasix provided on 12/26.
Repeat UA and reflex to culture.
Maintain Meehan
CT of the abdomen pelvis with IV and oral contrast
Broad-spectrum antibiotics pending cultures: Status post vancomycin, continue cefepime and metronidazole
Trend lactic acid
While hemodynamically stable hold further IV fluids
History pulm embolism 2021
Not compliant with anticoagulation
Lower extremity Doppler pending
Chest x-ray with questionable left lower lobe infiltrate/atelectasis.
Patient denies any acute respiratory symptoms
Acute urinary retention.
PVR over 500 cc.
Check PSA
Urinalysis with no evidence of infection
Meehan catheter placed on 12/24
Consider Flomax
PT evaluation increase activity
Bilateral venous stasis dermatitis cellulitis.
Afebrile with improving WBC.
No clear indication for antibiotics per
Continue wound care
History of CVA.
No focal findings on exam
CT head
1. No acute intracranial abnormality noted.
2. No acute fracture or subluxation of the cervical spine. Multilevel degenerative changes of the cervical spine.
3. Right frontal convexity partially calcified extra-axial mass, likely meningioma, new from 2016. Recommend outpatient workup with dedicated MRI brain without and with contrast.
Failure to thrive.
Patient at this point declining any invasive test or interventions.
He has been noncompliant with medications including anticoagulation prior to this presentation.
In addition patient declined any aggressive intervention including CPR or invasive ventilation.
Will ask psychiatry to evaluate for capacity and possible depression
DNR
DVT prophylaxis currently on IV heparin.
Anticipated Discharge: > 48 hours
Subjective/Interval History
-
Date of Service: December 26, 2024
Objective Data
-
Labs:
Laboratory Results
12/26/24 12/26/24
02:06 03:38
WBC 12.1 H
Hgb 14.6
Hct 43.6
Plt Count 260
Sodium 136
Potassium 4.1
Chloride 103
Carbon Dioxide 29
BUN 23 H
Creatinine 1.0
Glucose 152 H
Calcium 8.5
Total Bilirubin 5.5 H D
AST 344 H
ALT 170 H
Alkaline Phosphatase 421 H
Vital Signs:
Vital Signs
Temp Pulse Resp BP Pulse Ox
98.3 F 109 20 101/68 99
12/26/24 11:47 12/26/24 08:40 12/26/24 11:47 12/26/24 08:40 12/26/24 11:47
I&O
12/25/24 12/26/24 12/27/24
06:59 06:59 06:59
Intake Total 1819 / 1819 1120 / 1120 1060 / 1060
Output Total 1550 / 1550 1200 / 1200
Balance 269 / 269 -80 / -80 1060 / 1060
Physical Exam
-
General: Well Developed and No Apparent Distress
HEENT: Normocephalic, Atraumatic and Moist Mucous Membranes
Respiratory: Clear to Auscultation
Cardiac: Regular Rhythm and S1/S2; Negative Murmur, Rub or Gallop
GI: Soft, Nontender, Nondistended and Normal Bowel Sounds; Negative Organomegaly
Rectal: Deferred by Provider
Musculoskeletal: No Clubbing, No Cyanosis and Other (Bilateral lower extremity venous stasis dermatitis and superficial wounds.)
Skin: Negative Rash
Neuro: Nonfocal/Grossly Intact
--- NOTE | 2024-12-26 15:10 | PTCARENOTE ---
Patient returned from CT scan. Left upper arm midline placed by IV team. Lunch ordered call pearson in reach
--- NOTE | 2024-12-26 15:52 | W.PN.UPDATE ---
Update Note
Progress Note Update
CT scan:
1. Mild intrahepatic biliary ductal dilation, new/increased compared to prior CT dated 06/08/2021. Given history of sepsis, cholangitis is not excluded.
2. There is a chronic indwelling plastic stent within the common bile duct, also seen on prior CT from 2021. Given new biliary ductal dilation, this stent may be at least partially blocked.
3. Several ill-defined hypoattenuating lesions within the liver, measuring up to 1.8 cm in diameter, new compared to prior CT. Differential diagnosis includes intrahepatic bilomas, hepatic neoplasm, and metastatic disease to the liver.
4. Findings of mild constipation.
With additional questioning patient is aware of biliary stent, although could not recall timing and circumstances.
Will ask gastroenterology to see. Will require intervention sooner later
Continue antibiotics
Follow LFT trend.
Will require further workup for hypoattenuating lesions throughout the liver, although patient expressed desire not to pursue any invasive tests and procedures.
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
[2024-12-26] MEDS: LIPITOR 20 MG PO (17:53)
[2024-12-26] MEDS: FLOMAX 0.8 MG PO (21:03)
[2024-12-27] MEDS: MAXIPIME 1000 MG IV ×4 (00:15→17:21)
[2024-12-27] MEDS: STERILE WATER FOR INJECTION 10 ML IV ×4 (00:15→17:21)
[2024-12-27 03:48] VITALS: BP 117/71
[2024-12-27 04:33] LABS: Hematocrit 39.4 % (39.0-52.0); Hemoglobin 13.0 g/dL (13.0-18.0); Mean Corp Hgb Conc. 33.0 g/dL (33.0-37.0); Mean Corpuscular Volume 86.8 fL (80.0-94.0); Nucleated Red Blood Cells % 0 % (-); Platelet Count 239 10^3/uL (130-400); Red Cell Dist. Width 16.6 % (11.5-14.5)
[2024-12-27 04:47] LABS: ALT (SGPT) 183 U/L (0-50); AST (SGOT) 262 U/L (17-59); Albumin 2.4 g/dl (3.5-5.0); Alkaline Phosphatase 300 U/L (38-126); Blood Urea Nitrogen 27 mg/dl (9-20); Calcium 8.0 mg/dl (8.4-10.2); Carbon Dioxide 30 mmol/L (22-30); Chloride 101 mmol/L (98-107); Estimated Creatinine Clearance 77 ml/min; Glucose 128 mg/dl (70-99); Potassium 4.0 mmol/L (3.5-5.1); Sodium 135 mmol/L (135-145); Total Protein 5.2 g/dl (6.3-8.2); eGFR > 60.00
[2024-12-27] MEDS: FLAGYL 500 MG 100 IV ×2 (06:12→17:21)
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
[2024-12-27 07:47] VITALS: BP 110/68
[2024-12-27] MEDS: HYDROPHOR 1 APPLIC TOPICAL (08:03)
[2024-12-27] MEDS: COLACE 100 MG PO ×2 (08:03→19:33)
[2024-12-27] MEDS: PROTONIX 40 MG PO (08:03)
[2024-12-27] MEDS: TOPROL XL 25 MG PO (08:03)
[2024-12-27] MEDS: CARDIZEM CD 180 MG PO (08:03)
[2024-12-27] MEDS: DESENEX/MITRAZOL/ZEASORB 1 APPLIC TOPICAL ×2 (08:04→19:33)
--- NOTE | 2024-12-27 08:47 | W.PN.UPDATE ---
Update Note
Progress Note Update
I spoke with [facility] and Spoke with Dr. Ambrocio and Dr. Hector to be accepted to [facility] for cholangitis. Reviewed labs, vital, imaging and status. Face sheet faxed. reviewed with Dr. Daniels and cardiology. Pt consents to
transfer . Rishi updated.
pt estranged from
contacts are Rishi Borjas- [phone] and Federico Nunn [phone](federico in operator and truck driver and cannot always be reached)
--- NOTE | 2024-12-27 09:18 | PTCARENOTE ---
Patient AO x 2-3, confused to time, RUE flaccid, A-fib BBB HR 90's, +1 edema. LUE midline. Meehan discontinued at 0815, #25 condom cath placed. Urine orange. Skin in legs brown and scaly. skin tears b/l legs, left forearm and stage II sacral ulcer
covered with a foam dressing. Heel foams intact. Patient NPO except meds. Call pearson in reach
--- NOTE | 2024-12-27 09:45 | CM ---
Reviewed chart. Mr Blackwell accept in transfer to [facility] for continued care. Await confirmation of bed availability. Will need to go via ambulance. Medical work-up in progress. The discharge plan is to go to [place] [facility] when bed available.
[2024-12-27 12:14] VITALS: BP 124/89
--- NOTE | 2024-12-27 14:50 | W.DCSUMMARY ---
Discharge Summary
Discharge Data
Date of Admission: 12/23/24
Date of Discharge: 12/27/24
-
Pending Results: No
Hospital Course
Impression
74-year-old with history of hypertension, hyperlipidemia, prior PE on apixaban not currently on anticoagulation, hypertension, BPH, presenting to the emergency department after being found on the floor at home and found to be in rapid atrial
fibrillation. He has dehydration with elevated BUN, no obvious signs of infection. He has no focal deficits but has a slight slurring of his speech. CT of the head was negative. Imaging shows no trauma and specifically no hip fracture or
dislocation. Chest x-ray with possible infiltrate but patient is without cough or fevers chills or leukocytosis. UA was unremarkable.
Failure to thrive. Admitted with falls.
Atrial fibrillation with RVR new diagnosis.
Elevated cardiac markers troponin/BNP.
Medication noncompliance
Acute urinary retention requiring placement Meehan catheter placement.
Sepsis developed on 12/26
Acute cholangitis with CBD obstruction
Lactic acidosis
Other conditions:
History of pulmonary embolism 2021.
History of CVA treated with tPA 2014.
History of gastrointestinal hemorrhage presumably lower source from hemorrhoids and polyps
Essential hypertension.
Status post laparoscopic cholecystectomy complicated with biliary leak followed CBD stent placement 2020
Obesity with BMI of 35
Dyslipidemia
Plan
Atrial fibrillation with rapid ventricular response, new diagnosis.
Echo 06/09/2021: EF 70 to 75%, normal regional wall motion mild concentric LVH
Asymptomatic and hemodynamically stable upon presentation.
Rate controlled
Transitioned off IV Cardizem to oral Cardizem and metoprolol
Reinstated on anticoagulation with Eliquis
Abnormal troponin
Mildly elevated pro CHF BNP at 600
Echocardiogram with preserved biventricular function with no regional wall motion abnormalities.
Currently no indication for ischemic workup.
Will need outpatient follow-up
Sepsis developed on 12/26.
Noted for abnormal liver function test prompted for further imaging
CT scan of the abdomen pelvis findings consistent with common bile duct stent obstruction and multiple hypodense hepatic lesions possibly below most versus metastatic disease.
E. coli bacteremia
Patient initiated on antibiotics.
GI consulted with plan for ERCP (down and back to [facility])
Pending transfer
Patient with prior history of cholecystectomy complicated with biliary leak and CBD stent in 2020
Overall hemodynamically stable with improved lactic acidosis while on broad-spectrum antibiotics and IV fluids
Eliquis placed on 1 dissipated procedure
History pulm embolism 2021
Not compliant with anticoagulation
Lower extremity Doppler pending
Chest x-ray with questionable left lower lobe infiltrate/atelectasis.
Patient denies any acute respiratory symptoms
Acute urinary retention.
PVR over 500 cc.
Check PSA
Urinalysis with no evidence of infection
Meehan catheter placed on 12/24
Consider Flomax
PT evaluation increase activity
Bilateral venous stasis dermatitis cellulitis.
Afebrile with improving WBC.
No clear indication for antibiotics per
Continue wound care
History of CVA.
No focal findings on exam
CT head
1. No acute intracranial abnormality noted.
2. No acute fracture or subluxation of the cervical spine. Multilevel degenerative changes of the cervical spine.
3. Right frontal convexity partially calcified extra-axial mass, likely meningioma, new from 2016. Recommend outpatient workup with dedicated MRI brain without and with contrast.
Failure to thrive.
Patient at this point declining any invasive test or interventions.
He has been noncompliant with medications including anticoagulation prior to this presentation.
In addition patient declined any aggressive intervention including CPR or invasive ventilation.
Will ask psychiatry to evaluate for capacity and possible depression
DNR
Discharge Plan
-
Patient Disposition: Acute Care Hospital
Discharge Orders:
Discharge Patient (As Directed); Ordered 12/27/24
Ordered By: Kennedy Daniels
Discharge Date and Time
Print Language: ALBANIAN
[2024-12-27 15:13] VITALS: BP 141/98
[2024-12-27 15:32] VITALS: BP 141/98; PULSE 94; O2SAT 93; O2SAT 95
--- NOTE | 2024-12-27 16:18 | PTCARENOTE ---
Due to void and has not. Meehan removed at 0815, bladder scan 279
--- NOTE | 2024-12-27 16:34 | PTCARENOTE ---
Patient out of bed in the chair. Clear liquids ordered, using call pearson for needs
[2024-12-27] MEDS: LIPITOR 20 MG PO (17:22)
--- NOTE | 2024-12-27 18:33 | PTCARENOTE ---
Patient assisted to bed times 2 and using rolling walker. Call placed to [facility] [phone], they do have a bed and currently being cleaned. They will call when is is available [place].
[2024-12-27 19:09] VITALS: BP 153/98
--- NOTE | 2024-12-27 19:22 | PTCARENOTE ---
Report called to Nayana BERNARD at [facility] ([facility] room 8556)
--- NOTE | 2024-12-27 20:58 | PTCARENOTE ---
pt transport arrived approx 1950 to transfer pt to [facility] via stretcher/ambulance. pt stable, VS captured, assessment completed--see work list. Belongings sent with transport.
== END 2024-12-27 20:00 | disposition short-term general hospital (02) | DRG 308 ==
LOC: IVU 22:22
PROVIDERS: Emergency Medicine; Nurse Practitioner Family; ADMITTING PHYSICIAN Internal Medicine; ATTENDING PHYSICIAN Internal Medicine; EMERGENCY PHYSICIAN Emergency Medicine; OTHER PHYSICIAN Internal Medicine Cardiovascular Disease; OTHER PHYSICIAN Psychiatry & Neurology Psychiatry; OTHER PHYSICIAN Student in an Organized Health Care Education/Training Program
DX: I48.91 Unspecified atrial fibrillation (principal); A41.51 Sepsis due to Escherichia coli [E. coli]; K83.1 Obstruction of bile duct; K83.09 Other cholangitis; E87.20 Acidosis, unspecified; T85.590A Other mechanical complication of bile duct prosthesis, initial encounter; L03.90 Cellulitis, unspecified; J98.11 Atelectasis; I69.351 Hemiplegia and hemiparesis following cerebral infarction affecting right dominant side; R62.7 Adult failure to thrive; Z79.01 Long term (current) use of anticoagulants; Z86.711 Personal history of pulmonary embolism; E66.9 Obesity, unspecified; Z68.36 Body mass index [BMI] 36.0-36.9, adult; I50.9 Heart failure, unspecified; I11.0 Hypertensive heart disease with heart failure; K64.8 Other hemorrhoids; Z86.0100 Personal history of colon polyps, unspecified; Z90.49 Acquired absence of other specified parts of digestive tract; K76.9 Liver disease, unspecified; Y73.2 Prosthetic and other implants, materials and accessory gastroenterology and urology devices associated with adverse incidents; I87.2 Venous insufficiency (chronic) (peripheral); D32.9 Benign neoplasm of meninges, unspecified; M47.812 Spondylosis without myelopathy or radiculopathy, cervical region; Z66 Do not resuscitate; F32.A Depression, unspecified; E86.0 Dehydration; Z91.128 Patient's intentional underdosing of medication regimen for other reason; K21.9 Gastro-esophageal reflux disease without esophagitis; E78.00 Pure hypercholesterolemia, unspecified; K59.00 Constipation, unspecified; N40.0 Benign prostatic hyperplasia without lower urinary tract symptoms; Z79.899 Other long term (current) drug therapy; Z90.81 Acquired absence of spleen; Z91.120 Patient's intentional underdosing of medication regimen due to financial hardship; Z11.52 Encounter for screening for COVID-19
CPT/HCPCS: 70450; 71045; 72125; 72170; 74177; 80048; 80053; 80061; 81003; 81015; 82248; 82550; 82962; 83036; 83605; 83735; 83880; 84100; 84145; 84443; 84484; 85025; 85027; 85730; 87040; 87070; 87077; 87086; 87154; 87186; 87205; 87811; 93005; 93306; 93970; 96374; 96376; 97163; 97167; 97530; 99291; G0103; Q9950; Q9967

== ENCOUNTER 2025-03-30 13:47 | Emergency (ER) | payer OTHER, SELFPAY ==
[2025-03-30] VITALS (7 sets, daily range): BP systolic 147–184; BP diastolic 81–96; BMI 36.7
--- NOTE | 2025-03-30 15:48 | ED.GENMED ---
History of Present Illness
General
Chief Complaint: Urinary Symptoms
Source: patient, records and ambulance crew
Exam Limitations: other (Cognitive impairment)
Time Seen by Provider: 03/30/25 14:42
History of Present Illness
History of Present Illness:
74-year-old male with HTN, HLD, anemia, HLD, MDD, A-fib on Eliquis, Hemiplegia and hemiparesis post CVA, BPH, dysphagia, cognitive communication deficit presents [place] [facility] stating 'I have a urine infection.' He states he has painful
urination. He states his symptoms started a week ago. Per ambulance crew, he has had urinary frequency for the past few days and urine has been brown. Patient denies SOB, CP, abdominal pain.
Past History
Past History
ED Past Medical History: CVA (Right sided weakness in the arm), HTN, Hypercholesterolemia, Psychiatric (Major depressive disorder) and Other (BPH, urinary retention, cognitive communication deficit, hemiplegia and hemiparesis following CVA, BPH,
A-fib on Eliquis)
ED Past Surgical History: Urological (TURP) and Other (Splenectomy)
Social History
Tobacco: Non-smoker
Alcohol: None
Drug: None
Personal: (But lives alone)
Living: [facility]
Family History
Family History: Other (nonsig)
Review of Systems
Review of Systems
Allergies reviewed?: Yes
Unable to obtain full review of systems at this time due to: other (Cognitive impairment)
All Other Systems: ROS reviewed and negative except as documented in HPI and ROS
Phy Exam
Physical Exam
Physical Exam:
GENERAL: No acute distress. A&Ox3.
CONSTITUTIONAL: Afebrile.
EYES: clear, conjunctivae normal
ENMT: moist mucus membranes, Pharynx nl
RESPIRATORY: Regular respirations, nonlabored, lungs clear.
CARDIOVASCULAR: Regular rate and rhythm, no murmurs, no rubs.
GI: Soft, obese, nontender, normal BS
SKIN: Warm, dry, pink, chronic stasis dermatosis both lower extremities
PSYCH: Normal mood and affect. Well kept, interactive and appropriate
NEUROLOGIC: Awake, alert and oriented. No focal neurological deficits
Course
Orders/Labs/Results
Orders:
Orders
03/30/25 15:53
Complete Blood Count/With Diff Urgent
Urinalysis Reflex To Culture Urgent
Date Specimen was Collected: 03/30/25
Time Specimen was Collected: 15:
Urine Microscopic Reflex Cult Urgent
Urine Culture Urgent
[place] Source: U
Specimen Description:
Obtained by: Random
Date Specimen was Collected: 03/30/25
Time Specimen was Collected: 15:
03/30/25 16:40
Comprehensive Metabolic Panel Urgent
03/30/25 17:25
Ciprofloxacin HCl [Cipro] 500 mg PO NOW STA
Abnormal Lab Results
03/30/25 03/30/25
15:53 16:40
MCHC 30.9 L g/dL
(33.0-37.0)
RDW 16.2 H %
(11.5-14.5)
MPV 10.5 H fL
(7.4-10.4)
Absolute Monos (auto) 0.8 H 10^3/uL
(0.1-0.6)
Lymphocytes % 18.0 L %
(20.5-51.1)
Monocytes % 11.9 H %
(1.7-9.3)
Carbon Dioxide 31 H mmol/L
(22-30)
Ur Occult Blood Reflex 4+ A
(Negative)
Leukocyte Esterase Rfl 3+ A
(Negative)
Urine RBC 21-25 A /HPF
(0-2)
Urine WBC (Reflex) >100 A /HPF
(0-5)
Urine Bacteria (Reflex) Moderate A
(Negative)
Urine Albumin (Reflex) 3+ A
(Neg - Trace)
03/30/25 15:53
03/30/25 16:40
Vital Signs
Initial and Last Documented VS:
Initial Vital Signs
Temp Pulse Resp BP Pulse Ox
98.2 F 63 17 159/90 97
03/30/25 14:00 03/30/25 14:00 03/30/25 14:00 03/30/25 14:00 03/30/25 14:00
Last Documented Vital Signs
Temp Pulse Resp BP Pulse Ox
98.2 F 65 17 162/92 92
03/30/25 14:00 03/30/25 20:30 03/30/25 20:30 03/30/25 20:00 03/30/25 20:30
MDM/Problems Addressed
MDM/Problems Addressed:
74-year-old male with HTN, HLD, anemia, HLD, MDD, A-fib on Eliquis, Hemiplegia and hemiparesis post CVA, BPH, dysphagia, cognitive communication deficit presents [place] [facility] stating 'I have a urine infection.' He states he has painful
urination. He states his symptoms started a week ago. Per ambulance crew, he has had urinary frequency for the past few days and urine has been brown. Patient denies SOB, CP, abdominal pain.
Afebrile, NAD
Patient was straight cathed for a urinalysis and over 800 mL of urine returned. Meehan catheter placed.
5:15 p.m.
CBC with no clinically significant abnormality
CMP with no clinically significant abnormality
UA consistent with infection with greater than 100 white blood cells. 3+ leukocytes moderate bacteria 4+ blood, 21-25 RBCs
Patient is stable for [facility] to [facility]
*Pulse Oximetry
SaO2: 97
Oxygen Mode of Delivery: Room air
Patient hypoxic: not evaluated
*Critical Care Note
Total Time (30-74mins, 75-104mins- exclusive of procedures): Not Applicable
ED Attending Note
-
Portions of this chart may have been created with voice recognition software.� Occasional wrong word or��sound alike� substitutions may have occurred due to the inherent limitations of voice recognition software.
Discharge Plan
Departure
Patient Disposition: [facility]/SNF
Date of Disposition: 03/30/25
Time of Disposition: 17:33
Patient with high blood pressure during this ER visit?: No
Condition: Good
Discharge Problem:
Acute UTI, Acute retention of urine
Instructions: Urinary Tract Infection, Adult (DC), How to Care for Your Meehan Catheter, Male, Urinary retention (DC)
Prescriptions:
New
ciprofloxacin HCl [Cipro] 500 mg tablet
500 mg PO BID Qty: 14 0RF
No Action
hydralazine 50 MG tablet
100 mg PO BID
Patient Comments:
patient states he do not take any home medicaiton currently
tamsulosin 0.4 MG capsule
0.8 mg PO HS
Patient Comments:
patient states he do not take any home medicaiton currently
trazodone 50 MG tablet
50 mg PO HS
Patient Comments:
patient states he do not take any home medicaiton currently
pantoprazole 40 MG tablet,delayed release (DR/EC)
40 mg PO DAILY Qty: 30 0RF
Patient Comments:
patient states he do not take any home medicaiton currently
olmesartan 20 MG tablet
20 mg PO DAILY
Patient Comments:
does take any medication right now at home
multivitamin with folic acid [Tab-A-Silver] 1 TABLET tablet
1 tab PO DAILY
Patient Comments:
patient states he do not take any home medicaiton currently
Eliquis 5 MG tablet
10 mg PO BID 4 Days Qty: 16 0RF
Patient Comments:
patient states he do not take any home medicaiton currently
atorvastatin 20 MG tablet
20 mg PO QPM Qty: 30 11RF
diltiazem HCl 180 mg Capsule,Extended Release 24hr
180 mg PO DAILY Qty: 30 11RF
metoprolol succinate 25 mg Tablet Extended Release 24 Hr
25 mg PO DAILY Qty: 30 11RF
Eliquis 5 mg Tablet
5 mg PO BID Qty: 60 11RF
acetaminophen 325 MG tablet
650 mg PO Q4HPRN PRN (Reason: mild to moderate pain) Qty: 0 0RF
Patient Comments:
week
docusate sodium 100 MG capsule
100 mg PO BID Qty: 0 0RF
Patient Comments:
patient states he do not take any home medicaiton currently
Referrals:
Davey Reece MD [Active, Urology] - As needed
Antolin Paul MD [Family Provider, Family Practice]
Activity Restrictions/Additional Instructions:
Mr. Blackwell has a UTI, he has 800 ml of urine retained in his bladder so we put a Meehan catheter in.
Remove the catheter in 7 days when the antibiotics are finished, or whenever his doctor says to remove it.
Recheck the Urinalysis in 1-2 weeks
Observe for future urine retention.
Interventions
Interventions:
*Risk Screen - Suicide Last Done: 03/30/25 14:03
*General Assessment Last Done: 03/30/25 14:03
*Neglect/Abuse Screening Last Done: 03/30/25 14:03
*ED COVID-19 Vaccine History Last Done: 03/30/25 14:03
*ED Influenza Vaccine History Last Done: 03/30/25 14:03
*Nursing Disposition Last Done: 03/30/25 20:59
ED-Male Genitourinary Assessment Last Done: 03/30/25 15:57
Discharge Date and Time
Discharge Date/Time: 03/30/25 21:01
Print Language: TELUGU
[2025-03-30 16:00] LABS: Urine Character Cloudy (Clear)
[2025-03-30 16:01] LABS: Hematocrit 44.6 % (39.0-52.0); Hemoglobin 13.8 g/dL (13.0-18.0); Mean Corp Hgb Conc. 30.9 g/dL (33.0-37.0); Mean Corpuscular Volume 92.1 fL (80.0-94.0); Nucleated Red Blood Cells % 0 % (-); Platelet Count 268 10^3/uL (130-400); Red Cell Dist. Width 16.2 % (11.5-14.5)
[2025-03-30 16:09] LABS: Urine Red Blood Cell 21-25 /HPF (0-2); Urine Squamous Cell 0-2 /LPF (Few); Urine White Cell >100 /HPF (0-5)
[2025-03-30 17:05] LABS: ALT (SGPT) 17 U/L (0-50); AST (SGOT) 22 U/L (17-59); Albumin 3.8 g/dl (3.5-5.0); Alkaline Phosphatase 85 U/L (38-126); Calcium 9.6 mg/dl (8.4-10.2); Carbon Dioxide 31 mmol/L (22-30); Chloride 107 mmol/L (98-107); Glucose 95 mg/dl (70-99); Potassium 4.5 mmol/L (3.5-5.1); Sodium 140 mmol/L (135-145); Total Protein 6.8 g/dl (6.3-8.2)
[2025-03-30 17:17] LABS: Blood Urea Nitrogen 20 mg/dl (9-20); Estimated Creatinine Clearance 73 ml/min; eGFR > 60.00
[2025-03-30] MEDS: CIPRO 500 MG PO (18:52)
== END 2025-03-30 21:01 ==
LOC: EMR 13:47
PROVIDERS: Registered Nurse; EMERGENCY PHYSICIAN Student in an Organized Health Care Education/Training Program; FAMILY PHYSICIAN Family Medicine
DX: R33.8 Other retention of urine (principal); N39.0 Urinary tract infection, site not specified; N40.1 Benign prostatic hyperplasia with lower urinary tract symptoms; I10 Essential (primary) hypertension; E78.00 Pure hypercholesterolemia, unspecified; I48.91 Unspecified atrial fibrillation; L98.9 Disorder of the skin and subcutaneous tissue, unspecified; I69.359 Hemiplegia and hemiparesis following cerebral infarction affecting unspecified side; F32.9 Major depressive disorder, single episode, unspecified; D64.9 Anemia, unspecified; R13.10 Dysphagia, unspecified; R41.841 Cognitive communication deficit; Z90.81 Acquired absence of spleen; Z79.01 Long term (current) use of anticoagulants
CPT/HCPCS: 99285; 51702; 51701; 80053; 81003; 81015; 85025; 87086

== ENCOUNTER 2025-05-20 12:17 | Emergency (ER) | payer OTHER, SELFPAY ==
[2025-05-20] VITALS (7 sets, daily range): BP systolic 159–196; BP diastolic 90–103
[2025-05-20 19:13] LABS: Hematocrit 40.6 % (39.0-52.0); Hemoglobin 12.9 g/dL (13.0-18.0); Mean Corp Hgb Conc. 31.8 g/dL (33.0-37.0); Mean Corpuscular Volume 88.3 fL (80.0-94.0); Nucleated Red Blood Cells % 0 % (-); Platelet Count 267 10^3/uL (130-400); Red Cell Dist. Width 16.2 % (11.5-14.5)
[2025-05-20 19:36] LABS: ALT (SGPT) 25 U/L (0-50); AST (SGOT) 27 U/L (17-59); Albumin 4.1 g/dl (3.5-5.0); Alkaline Phosphatase 101 U/L (38-126); Blood Urea Nitrogen 19 mg/dl (9-20); Calcium 9.5 mg/dl (8.4-10.2); Carbon Dioxide 30 mmol/L (22-30); Chloride 103 mmol/L (98-107); Glucose 92 mg/dl (70-99); Potassium 4.5 mmol/L (3.5-5.1); Sodium 139 mmol/L (135-145); Total Protein 6.9 g/dl (6.3-8.2); eGFR > 60.00
[2025-05-20] MEDS: APRESOLINE 50 MG PO (20:35)
[2025-05-20] MEDS: LASIX 20 MG PO (22:26)
--- NOTE | 2025-05-20 23:09 | ED.GENMED ---
History of Present Illness
General
Chief Complaint: Swelling
Time Seen by Provider: 05/20/25 17:54
History of Present Illness
History of Present Illness:
see MMD
Past History
Past History
ED Past Medical History: CVA (Right sided weakness in the arm), HTN, Hypercholesterolemia, Psychiatric (Major depressive disorder) and Other (BPH, urinary retention, cognitive communication deficit, hemiplegia and hemiparesis following CVA, BPH,
A-fib on Eliquis)
ED Past Surgical History: Urological (TURP) and Other (Splenectomy)
Social History
Tobacco: Non-smoker
Alcohol: None
Drug: None
Personal: (But lives alone)
Living: [facility]
Employment: Employed
Family History
Family History: Other (nonsig)
Phy Exam
Physical Exam
Physical Exam:
see MDM
Scores
Heart Failure Risk
Heart Failure Risk Score: Not Applicable
Course
Orders/Labs/Results
Orders:
Orders
05/20/25 12:55
Periph Venous Upr Ext Right US [US Periph Venous UPPER Ext RT] Urgent
Comment:
Reason For Exam: swelling
05/20/25 18:03
Electrocardiogram (*1) Stat
Reason for Study: Other
Other Reason for Exam: chest pain
EKG- Treatment ONCE
05/20/25 18:04
CT Chest PE Study Urgent
Comment:
Reason For Exam: sudden RUE swelling, edema, sob
05/20/25 19:04
Complete Blood Count/With Diff Urgent
Comprehensive Metabolic Panel Urgent
NT-proBNP Urgent
05/20/25 20:21
HydrALAZINE [Apresoline] 50 mg PO NOW STA
05/20/25 22:13
Furosemide [Lasix] 20 mg PO NOW STA
Abnormal Lab Results
05/20/25
19:04
RBC 4.60 L 10^6/uL
(4.70-6.10)
Hgb 12.9 L g/dL
(13.0-18.0)
MCHC 31.8 L g/dL
(33.0-37.0)
RDW 16.2 H %
(11.5-14.5)
MPV 10.6 H fL
(7.4-10.4)
Absolute Lymphs (auto) 1.1 L 10^3/uL
(1.2-3.4)
Absolute Monos (auto) 0.8 H 10^3/uL
(0.1-0.6)
Lymphocytes % 12.9 L %
(20.5-51.1)
Monocytes % 9.5 H %
(1.7-9.3)
05/20/25 19:04
05/20/25 19:04
Vital Signs
Initial and Last Documented VS:
Initial Vital Signs
Temp Pulse Resp BP Pulse Ox
36.9 C 70 18 179/95 95
05/20/25 12:53 05/20/25 12:53 05/20/25 12:53 05/20/25 12:53 05/20/25 12:53
Last Documented Vital Signs
Temp Pulse Resp BP Pulse Ox
36.9 C 79 16 159/90 95
05/20/25 12:53 05/20/25 22:57 05/20/25 22:57 05/20/25 22:57 05/20/25 23:12
MDM/Problems Addressed
Differential Diagnosis Includes:
seeMDM
MDM/Problems Addressed:
Note:
CHIEF COMPLAINT(S)
Swollen arm and shortness of breath.
HISTORY OF PRESENT ILLNESS
The patient is a 74-year-old male with a past medical history of a stroke eight years ago with R UE paresis, mostly uses wheelchair. says that he started with worseing swelling to RUE yesterday after getting a hair cut. he says it was always a
little swollen but never this swollen. it is not painful
pt has not had any numbness to th arm new from his baseline.
. He denies any acute chest pain. The patient has had difficulty moving the affected arm, which correlates with prior weakness due to the stroke. He is currently on blood thinners, indicating an established risk for bleeding tendencies or
anticoagulation-related issues.
ADDITIONAL HISTORY OBTAINED FROM SOURCES OTHER THAN THE PATIENT
The patient was brought to the hospital via EMS.
CHRONIC MEDICAL CONDITIONS SIGNIFICANTLY AFFECTING CARE
History of stroke.
SOCIAL DETERMINANTS AFFECTING HEALTH
The patient lives assisted living
.
MEDICATIONS
The patient is on blood thinners, though specific medications and dosages were not detailed.
PHYSICAL EXAM
GENERAL: Alert , in no apparent distress; h/o stroke
EYE: pupils equal and reactive
NECK: Supple
ENT: o/p clr, mmm.
CARDIAC: Regular rate and rhythm .MODERATE EDEMA RUE
the skin in axilla/and on his chest wall where his arm sits against is slighty moist, foul smelling, but no cellulitis
no crepitus
nontender arm
normal p
LUNGS: Clear breath sounds bilaterally, mild tachpynea no wheezes/rales/rhonchi
ABDOMEN: Soft, without focal tenderness, no r/g, no cvat, normal bowel sounds
NEUROLOGICAL: Alert and oriented, RUE CONTRACTURE/HEMIPARESIS,
SKIN: Warm and dry, slight moisture against chest wall where arm is laying
no blisters
no drainage
slightly malodorous/sweat
no tenderness, no creptius
MUSCULOSKELETAL: r arm contracture, making it difficult to see in bewteen his axilla space but no obvious cellutlis
nontender
diffuse edema to the arm
normal pulse
perfused
hemiparesis
B/L LE venous stasis changes, edema
PSYCH: Normal and appropriate interaction.
Nursing notes reviewed and vital signs reviewed.
PLAN
- Further evaluation of arm swelling with imaging and laboratory tests.
- Monitor respiratory status closely due to reported shortness of breath.
- Review and verify the current medication regimen, especially concerning anticoagulation therapy.
- Assess the need for supportive care at home due to the patients living situation and history of stroke.
DIFFERENTIAL DIAGNOSIS
The Differential Diagnosis includes, in no particular order and is not limited to:
1. Deep vein thrombosis of the upper extremity
2. Heart failure with pulmonary edema
3. Lymphedema
4. Upper extremity cellulitis
5. Chronic venous insufficiency
6. Pulmonary embolism
7. Medication side effects (e.g., anticoagulant-related bleeding)
8. Stroke-related hemiparesis
9. Inflammatory arthritis or bursitis
10. Respiratory infection or exacerbation of chronic lung disease
74-year-old male from a assisted living, history of stroke with right hemiparesis and ambulatory dysfunction but no documented history of CHF presents for edema in his right upper extremity, it seems as if this is mildly chronic but acutely worse in
the last 2 days. Patient seems to attribute this to after him getting a haircut which not really sure how that translates. His nursing staff at the [facility] said the same thing that he normally does not have this edema, they also felt like his
legs were more swollen than normal and they were worried during if he had CHF. Patient is on multiple blood pressure medications that Eliquis. He is not having significant pain in the arm, there is some moisture in the armpit as he holds his arm
against his trunk because of the contracture, there is no obvious cellulitis, no blistering, no drainage, the edema is diffuse in the right upper extremity with a normal pulse. Patient looked mildly tachypneic but says he does not feel short of
breath at all. He did have clear lungs, I did not appreciate any wheezing. His right upper extremity ultrasound was negative for a clot. I did a PE study to be sure that he did not have a more central clot which he did not. He was seen by the ED
attending. Patient's labs are fairly normal. He is not hypoxic and does not feel short of breath. He has normal BNP and no signs of pulmonary edema. We decided to give him a trial of outpatient management with 2 doses of Lasix the next 2 days,
salt control in his diet and close follow-up
*Pulse Oximetry
SaO2: 95
Oxygen Mode of Delivery: Room air
Patient hypoxic: no (95)
*Critical Care Note
Total Time (30-74mins, 75-104mins- exclusive of procedures): Not Applicable
ED Attending Note
-
Portions of this chart may have been created with voice recognition software.� Occasional wrong word or��sound alike� substitutions may have occurred due to the inherent limitations of voice recognition software.
Discharge Plan
Departure
Patient Disposition: Senior Care/SNF
Date of Disposition: 05/20/25
Time of Disposition: 22:38
Covid-19: Not Applicable
Discharge Problem:
Edema
Instructions: Swelling
Prescriptions:
New
furosemide [Lasix] 20 mg tablet
20 mg PO DAILY Qty: 2 0RF
No Action
hydralazine 50 MG tablet
100 mg PO BID
Patient Comments:
patient states he do not take any home medicaiton currently
tamsulosin 0.4 MG capsule
0.8 mg PO HS
Patient Comments:
patient states he do not take any home medicaiton currently
trazodone 50 MG tablet
50 mg PO HS
Patient Comments:
patient states he do not take any home medicaiton currently
pantoprazole 40 MG tablet,delayed release (DR/EC)
40 mg PO DAILY Qty: 30 0RF
Patient Comments:
patient states he do not take any home medicaiton currently
olmesartan 20 MG tablet
20 mg PO DAILY
Patient Comments:
does take any medication right now at home
multivitamin with folic acid [Tab-A-Silver] 1 TABLET tablet
1 tab PO DAILY
Patient Comments:
patient states he do not take any home medicaiton currently
Eliquis 5 MG tablet
10 mg PO BID 4 Days Qty: 16 0RF
Patient Comments:
patient states he do not take any home medicaiton currently
atorvastatin 20 MG tablet
20 mg PO QPM Qty: 30 11RF
diltiazem HCl 180 mg Capsule,Extended Release 24hr
180 mg PO DAILY Qty: 30 11RF
metoprolol succinate 25 mg Tablet Extended Release 24 Hr
25 mg PO DAILY Qty: 30 11RF
Eliquis 5 mg Tablet
5 mg PO BID Qty: 60 11RF
ciprofloxacin HCl [Cipro] 500 mg tablet
500 mg PO BID Qty: 14 0RF
acetaminophen 325 MG tablet
650 mg PO Q4HPRN PRN (Reason: mild to moderate pain) Qty: 0 0RF
Patient Comments:
week
docusate sodium 100 MG capsule
100 mg PO BID Qty: 0 0RF
Patient Comments:
patient states he do not take any home medicaiton currently
Referrals:
Antolin Paul MD [Family Provider, Family Practice]
Activity Restrictions/Additional Instructions:
Azeem did not have a blood clot in his arm, he had no blood clot in his lungs or more proximally, he had no signs of congestive heart failure. Not sure why his arm is swollen. He says he is been eating a lot of salt. He should be restricting
some salt
I did give him a dose of Lasix here 20 mg and you can do 1 more dose tomorrow and 1 more dose on . Follow-up with his doctor. Watch him closely. Return for any worsening problems with breathing or swelling, chest pain shortness of breath
etc. I did give him a dose of hydralazine for his blood pressure as well.
Interventions
Interventions:
*General Assessment Last Done: 05/20/25 17:26
*Neglect/Abuse Screening Last Done: 05/20/25 17:26
*ED COVID-19 Vaccine History Last Done: 05/20/25 17:26
*ED Influenza Vaccine History Last Done: 05/20/25 17:26
[facility] Fall Risk Assessment Tool Last Done: 05/20/25 17:46
*Risk Screen - Suicide (C-SSRS) Last Done: 05/20/25 17:26
*Nursing Disposition Last Done: 05/20/25 23:04
ED- Cardiac Assessment Last Done: 05/20/25 17:46
ED- Pulmonary Assessment Last Done: 05/20/25 17:46
ED-Skin Assessment Last Done: 05/20/25 17:46
Discharge Date and Time
Discharge Date/Time: 05/20/25 23:07
Print Language: BURUNDIAN
== END 2025-05-20 23:07 ==
LOC: EMR 12:17
PROVIDERS: Physician Assistant; EMERGENCY PHYSICIAN Emergency Medicine; FAMILY PHYSICIAN Family Medicine
DX: R60.0 Localized edema (principal); I48.91 Unspecified atrial fibrillation; I10 Essential (primary) hypertension; E78.00 Pure hypercholesterolemia, unspecified; I69.351 Hemiplegia and hemiparesis following cerebral infarction affecting right dominant side; I69.318 Other symptoms and signs involving cognitive functions following cerebral infarction; N40.1 Benign prostatic hyperplasia with lower urinary tract symptoms; R33.8 Other retention of urine; Z79.01 Long term (current) use of anticoagulants
CPT/HCPCS: 99284; 71275; 80053; 83880; 85025; 93005; 93971; Q9967